=== PATIENT | male | born 1995 | race Caucasian/White ===

== ENCOUNTER 2025-08-20 18:43 | Inpatient (IN) | payer MEDICAID ==
[~2025-08-20 18:43] MED LIST: QUET200T30 PO; SERT-439 PO
[2025-08-20] MEDS ORDERED: ZOLPIDEM TARTRATE 10 MG TABLET PO PRN (19:15)
[2025-08-20 22:44] VITALS: BP 110/64; PULSE 87; RESP 18; TEMP 98.2; O2SAT 98
[2025-08-20 23:51] LABS: GLUCOMETER DEV NAME(LOC) POC.BV; POC SARS-COV2 AG, FIA NEGATIVE (NEGATIVE)
[2025-08-21] MEDS ORDERED: ONDANSETRON 4 MG TABLET PO PRN (07:15)
[2025-08-21] MEDS ORDERED: DOCUSATE SODIUM 100 MG CAPSULE PO PRN (07:15)
[2025-08-21] MEDS ORDERED: MAG HYDROX/ALUMINUM HYD/SIMETH ES 30 ML SUSPENSION UDCUP PO PRN (07:15)
[2025-08-21] MEDS ORDERED: OMEPRAZOLE 20 MG CAPSULE PO PRN (07:15)
[2025-08-21] MEDS ORDERED: BACITRACIN 28 GM OINTMENT TP PRN (07:15)
[2025-08-21] MEDS ORDERED: IBUPROFEN 600 MG TABLET PO PRN (07:15)
[2025-08-21] MEDS ORDERED: MAGNESIUM HYDROXIDE SUSPENSION 30 ML UDCUP PO PRN (07:15)
[2025-08-21] MEDS ORDERED: ALBUTEROL SULFATE HFA 90 MCG/PUFF 8 GM INHALER IH PRN (07:15)
[2025-08-21] MEDS ORDERED: LOPERAMIDE HCL 2 MG CAPSULE PO PRN (07:15)
[2025-08-21] MEDS ORDERED: PETROLATUM,WHITE 28 GM JELLY TP PRN (07:15)
[2025-08-21 08:51] VITALS: RESP 17
[2025-08-21] MEDS: NICOTINE POLACRILEX 4 MG LOZENGE PO PRN (09:35)
[2025-08-21] MEDS: NICOTINE 21 MG/24 HOUR PATCH TD SCH (13:57)
[2025-08-22] MEDS: BENZOCAINE/MENTHOL [CEPACOL] LOZENGE PO PRN (16:12)
[2025-08-23] MEDS ORDERED: NICOTINE POLACRILEX 4 MG LOZENGE PO PRN (06:15)
[2025-08-23 08:21] VITALS: BP 125/82; PULSE 86; RESP 18; TEMP 97.8; O2SAT 99
[2025-08-23 09:08] LABS: APPEARANCE,URINE HAZY (CLEAR); GLUCOSE, URINE (UA) NEGATIVE (NEGATIVE); LEUKOCYTE ESTERASE ,URINE NEGATIVE (NEGATIVE); NITRATE,URINE NEGATIVE (NEGATIVE); OCCULT BLOOD,URINE NEGATIVE (NEGATIVE); PH,URINE DRUG SCREEN 7.5 (5.0-8.0); SPECIFIC GRAVITIY, URINE 1.018 (1.003-1.030)
[2025-08-23 09:12] LABS: ALCOHOL, URINE DRUG SCREEN NEGATIVE (NEGATIVE); AMPHET/METH SCREEN,URINE NEGATIVE (NEGATIVE); BARBITURATE SCREEN, URINE NEGATIVE (NEGATIVE); CANNABINOID SCREEN,URINE NEGATIVE (NEGATIVE); COCAINE SCREEN,URINE NEGATIVE (NEGATIVE); METHADONE SCREEN, URINE NEGATIVE (NEGATIVE)
[2025-08-23 21:27] VITALS: RESP 18
[2025-08-24 09:38] VITALS: BP 102/90; PULSE 79; RESP 17; TEMP 98.3; O2SAT 95
[2025-08-25 08:29] VITALS: BP 102/79; PULSE 78; RESP 18; TEMP 97.2; O2SAT 100
[2025-08-25 08:38] VITALS: RESP 17
[2025-08-25] MEDS: ACETAMINOPHEN 325 MG TABLET PO PRN (08:38)
[2025-08-25 09:38] VITALS: RESP 18
[2025-08-25] MEDS ORDERED: RISP3TAB77 PO (19:13)
[2025-08-25 20:35] VITALS: BP 138/72; PULSE 77; RESP 17; TEMP 97.6; O2SAT 98
== END 2025-08-26 05:00 | disposition home or self-care (01) | DRG 761 ==
LOC: B2S 20:12
PROVIDERS: ADMIT Psychiatry & Neurology Psychiatry; ATTEND Psychiatry & Neurology Psychiatry
DX: F25.9 Schizoaffective disorder, unspecified (principal); Z59.00 Homelessness unspecified; F32.9 Major depressive disorder, single episode, unspecified; F41.9 Anxiety disorder, unspecified; G47.00 Insomnia, unspecified; K21.9 Gastro-esophageal reflux disease without esophagitis; K59.00 Constipation, unspecified; Z20.822 Contact with and (suspected) exposure to COVID-19; Z53.20 Procedure and treatment not carried out because of patient's decision for unspecified reasons; F10.90 Alcohol use, unspecified, uncomplicated; F12.90 Cannabis use, unspecified, uncomplicated; Y90.9 Presence of alcohol in blood, level not specified; S99.911A Unspecified injury of right ankle, initial encounter; X58.XXXA Exposure to other specified factors, initial encounter; Z72.0 Tobacco use; Y93.89 Activity, other specified; Y92.89 Other specified places as the place of occurrence of the external cause; Y99.8 Other external cause status
CPT/HCPCS: 80307; 81003